=== PATIENT | male | born 1985 | race Caucasian/White ===

== ENCOUNTER 2025-08-06 07:59 | Inpatient (IN) | payer MEDICAID ==
[~2025-08-06] VITALS: Ht 167.6 cm; Wt 67.0 kg
[~2025-08-06 07:59] MED LIST: MULT-1366 PO
[2025-08-06] MEDS: THIAMINE 100 MG/ML 2 ML VIAL IVP ONE (09:29)
[2025-08-06] MEDS: SODIUM CHLORIDE 0.9% 1,000 ML IV ONE (09:30)
[2025-08-06 09:47] LABS: PLATELET COUNT (AUTO) 84 K/uL (150-450); RED BLOOD CELL COUNT(AUTO) 4.51 MIL/uL (4.50-5.90); RED CELL DISTRIBUTION WIDTH 16.5 % (11.5-14.5); WHITE BLOOD COUNT (AUTO) 4.2 K/uL (4.5-11.0)
[2025-08-06 10:00] LABS: CALCIUM, TOTAL 8.7 mg/dL (8.8-10.5); CREATININE 0.60 mg/dL (0.60-1.30); GLOMERULAR FILTR. RATE CALC > 60 mL/min (>60); GLUCOSE,RANDOM 74 mg/dL (70-110); SODIUM SERUM 134 mmol/L (136-145); UREA NITROGEN, BLOOD 6 mg/dL (7-18)
[2025-08-06 10:02] LABS: ALCOHOL, BLOOD (SERUM) 236 mg/dL (0-10)
[2025-08-06 10:05] LABS: ASPARTATE AMINOTRANSFERASE 204 U/L (15-37); TOTAL PROTEIN, SERUM 9.2 g/dL (6.4-8.2)
[2025-08-06] MEDS: 1: MAGNESIUM SULFATE 2 GM, MVI, ADULT NO.1 WITH VIT K 10 ML, THIAMINE 100 MG, FOLIC ACID IV SCH (11:45)
[2025-08-06] MEDS: PANTOPRAZOLE SODIUM 40 MG/VIAL IVP SCH (11:53)
[2025-08-06] MEDS: LORazepam 2 MG/ML VIAL IVP PRN (11:54)
[2025-08-06] MEDS: ACETAMINOPHEN 325 MG TABLET PO PRN (11:54)
[2025-08-06] MEDS: ONDANSETRON HCL 4 MG/2 ML VIAL IVP PRN (11:54)
[2025-08-06 15:20] LABS: APPEARANCE,URINE CLEAR (CLEAR); GLUCOSE, URINE (UA) NEGATIVE (NEGATIVE); LEUKOCYTE ESTERASE ,URINE NEGATIVE (NEGATIVE); NITRATE,URINE NEGATIVE (NEGATIVE); OCCULT BLOOD,URINE NEGATIVE (NEGATIVE); SPECIFIC GRAVITIY, URINE 1.025 (1.003-1.030)
[2025-08-06 15:30] LABS: PH,URINE DRUG SCREEN 6.0 (5.0-8.0); SULFOSALICYLIC ACID,URINE 1+ (Negative)
[2025-08-06 15:31] LABS: SQUAMOUS EPITHELIAL CELL,UR Rare /LPF (None Seen)
[2025-08-06 15:44] LABS: ALCOHOL, URINE DRUG SCREEN POSITIVE (NEGATIVE); AMPHET/METH SCREEN,URINE NEGATIVE (NEGATIVE); BARBITURATE SCREEN, URINE NEGATIVE (NEGATIVE); CANNABINOID SCREEN,URINE NEGATIVE (NEGATIVE); COCAINE SCREEN,URINE NEGATIVE (NEGATIVE); METHADONE SCREEN, URINE NEGATIVE (NEGATIVE)
[2025-08-06] MEDS: DOCUSATE SODIUM 100 MG CAPSULE PO SCH (21:00)
[2025-08-07 00:13] VITALS: BP 118/74; PULSE 86; RESP 18; TEMP 98.4; O2SAT 95
[2025-08-07] MEDS ORDERED: SODIUM CHLORIDE 0.9% 1,000 ML ONE (02:41)
[2025-08-07 08:27] VITALS: BP 127/80; PULSE 84; RESP 18; TEMP 98.1; O2SAT 98
[2025-08-07 11:58] VITALS: BP 135/82; PULSE 96; RESP 18; TEMP 98; O2SAT 99
[2025-08-07 15:46] VITALS: BP 136/84; PULSE 109; RESP 19; TEMP 98.4; O2SAT 98
[2025-08-07 20:33] VITALS: BP 141/78; PULSE 103; RESP 19; TEMP 98.4; O2SAT 98
[2025-08-07 23:19] VITALS: BP 149/94; PULSE 128; RESP 18; TEMP 98.4; O2SAT 97
[2025-08-08 01:18] LABS: TROPONIN I-HIGH SENSITIVITY 4 ng/L (<76)
[2025-08-08] MEDS ORDERED: SODIUM CHLORIDE 0.9% 1,000 ML ONE (03:08)
[2025-08-08 03:34] VITALS: BP 124/82; PULSE 122; RESP 18; TEMP 98.4; O2SAT 97
[2025-08-08 06:46] LABS: RED BLOOD CELL COUNT(AUTO) 4.02 MIL/uL (4.50-5.90); RED CELL DISTRIBUTION WIDTH 15.4 % (11.5-14.5); WHITE BLOOD COUNT (AUTO) 4.8 K/uL (4.5-11.0)
[2025-08-08 06:55] LABS: CALCIUM, TOTAL 8.7 mg/dL (8.8-10.5); CREATININE 0.48 mg/dL (0.60-1.30); GLOMERULAR FILTR. RATE CALC > 60 mL/min (>60); GLUCOSE,RANDOM 123 mg/dL (70-110); SODIUM SERUM 135 mmol/L (136-145); UREA NITROGEN, BLOOD 1 mg/dL (7-18)
[2025-08-08 07:42] LABS: PLATELET COUNT (AUTO) 38 K/uL (150-450)
[2025-08-08 07:59] VITALS: BP 128/88; PULSE 110; RESP 18; TEMP 98.4; O2SAT 98
[2025-08-08] MEDS ORDERED: POTASSIUM CHL 10 MEQ/WATER 50 ML IV PRN (10:45)
[2025-08-08 11:34] VITALS: BP 136/87; PULSE 96; RESP 18; TEMP 98.8; O2SAT 99
[2025-08-08] MEDS: POTASSIUM CHLORIDE 20 MEQ ER TABLET PO PRN (11:50)
[2025-08-08 15:19] VITALS: BP 130/78; PULSE 101; RESP 18; TEMP 99.9; O2SAT 98
[2025-08-08] MEDS ORDERED: THIA100T80 PO (15:53)
[2025-08-08] MEDS ORDERED: DOXY-354 PO (15:53)
[2025-08-08] MEDS ORDERED: MULT-1366 PO (15:53)
[2025-08-08] MEDS ORDERED: Neomy Sulf/Bacitrac Zn/Poly TP (15:53)
[2025-08-08] MEDS ORDERED: FOLI-130 PO (15:53)
[2025-08-08] MEDS ORDERED: CHLO10CA6 PO (15:53)
[2025-08-08] MEDS: NEOMYCIN/BACITRACIN/POLYMYXIN B 30 GM OINTMENT TP SCH (16:00)
== END 2025-08-08 17:45 | disposition home or self-care (01) | DRG 775 ==
LOC: EMS 08:03 → EDH 11:18 → 6N 20:56 → 5N 21:10
PROVIDERS: ADMIT Internal Medicine; ATTEND Internal Medicine
DX: F10.139 Alcohol abuse with withdrawal, unspecified (principal); G92.8 Other toxic encephalopathy; D69.6 Thrombocytopenia, unspecified; K70.9 Alcoholic liver disease, unspecified; Y90.7 Blood alcohol level of 200-239 mg/100 ml; Z79.899 Other long term (current) drug therapy
CPT/HCPCS: 71045; 74176; 76700; 80048; 80053; 80307; 81001; 81002; 83735; 84484; 85025; 93005; 99285; G0480; J2060; J2405; J2470; J3411; J3475; J3490; J7030; 36415-L1; 36415-TC